=== PATIENT | female | born 1960 | race Caucasian/White ===

== ENCOUNTER 2025-02-09 12:56 | Inpatient (IN) ==
--- NOTE | 2025-02-09 13:15 | Emergency Department Note ---
Impression & Plan Acute hypoxic respiratory failure, Shortness of breath, Anemia ED Provider Note NAME: ELAINA MENON AGE: 64 SEX: F : 1960 ARRIVES VIA: Walk-In INFORMANT: Patient ED PROVIDER(S): Delmer Iraheta DO CHIEF COMPLAINT: Shortness of breath cough and congestion HPI: Patient is a 64-year-old female who presents to the ER with a past medical history of asthma, COPD, pulmonary artery hypertension for cough congestion and shortness of breath. She denies any history of heart failure. She notes symptoms started yesterday and have been gradually getting worse. Denies any chest pain but admits to a productive cough. No belly pain. No nausea, vomiting or diarrhea. No dysuria, urgency or frequency. No other exacerbating or remitting factors. ADDITIONAL HISTORY OBTAINED: Per HPI Chronic Medical/Social Conditions Affecting Care: Per HPI PAST MEDICAL HISTORY:See Below PAST SURGICAL HISTORY:See Below FAMILY HISTORY:See Below SOCIAL HISTORY:See Below HOME MEDICATIONS:See Below ALLERGIES:See Below VITALS:See Below PHYSICAL EXAMINATION: GENERAL: Sitting up in bed, alert, chronically ill-appearing with intermittent cough EYE EXAM: normal conjunctiva. OROPHARYNX: no exudate, no erythema, lips, buccal mucosa, and tongue normal and mucous membranes are moist NECK: supple, no nuchal rigidity, no adenopathy, non-tender LUNGS: Wheezing bilaterally with poor air movement. Normal chest wall mechanics HEART: no murmurs, S1 normal and S2 normal ABDOMEN: abdomen soft, non-tender, normo-active bowel sounds, no masses, no rebound or guarding. UPPER EXTREMITIES: upper extremities are grossly normal. LOWER EXTREMITIES: No pitting edema. Calves are equal bilaterally NEURO EXAM: Normal sensorium, cranial nerves II-XII grossly intact, normal speech, no gross weakness of arms, no gross weakness of legs. MEDICAL DECISION MAKING: Patient is a 64-year-old female who presents ER for shortness of breath and wears oxygen just at night. IV was established and blood work is obtained. She was found to be hypoxic and placed on 3 L nasal cannula. Labs show no significant leukocytosis. Mild anemia 10. BMP with mild acidosis with a CO2 of 20. LFTs bilirubin was unremarkable. Lipase was normal. COVID flu and RSV was negative. EKG was unremarkable. Chest x-ray shows subtle opacities in bilateral bases. Patient was given an hour-long neb treatment as well as steroids IV Rocephin and azithromycin. Updated bedside discussed case with the hospitalist for further evaluation management treatment. Consults/Care Managements Discussions: Per [facility] Triage Nursing notes reviewed. Limited review of prior medical records performed Vital Signs: reviewed and remarkable for hypoxic Differential diagnosis: Differential diagnoses includes but is not limited to pneumonia, bronchitis, COPD/Asthma exacerbation, pneumothorax, pulmonary embolism, congestive heart failure, acute coronary syndrome ER treatment provided: See below Diagnostics interpreted by me include EKG and cardiac monitoring as listed below: -Cardiac Monitoring: An order was placed for continuous cardiac monitoring. The monitor shows a rate of 90 with sinus rhythm. -ECG: Sinus rhythm rate of 67 Normal axis No PVCs QTc 498 T wave inversions V3 through V6 -Laboratory studies:Interpreted by me as stated above in MDM and shown below. Imaging studies: Xrays: As interpreted by me: Portable AP upright 1 view of the chest shows bilateral opacities in the bases CTs show: none Procedures:none Critical Care: I have personally spent 32 minutes of critical care time in the direct management of this patient. This includes bedside care, interpretation of diagnostic studies, and testing, discussion with consultants, patient, and family members, and other required patient management activities. This 32 minutes is in excess of all separately billable procedures. Past Med/Surg History Problem List (Updated 02/09/25 @ 17:18 by Delmer Iraheta DO) Anemia (Acute) Shortness of breath (Acute) Acute hypoxic respiratory failure (Acute) CHF exacerbation COPD with exacerbation Left lower lobe pneumonia Asthmatic bronchitis Anticoagulation management encounter Atrial fibrillation Pulmonary arterial hypertension MARK (dyspnea on exertion) Leg cramps, sleep related Pharyngitis Nasal congestion Asymptomatic age-related postmenopausal state Obstructive sleep apnea Basal cell carcinoma of skin Right hip pain Microscopic colitis Diarrhea Declined smoking cessation Encounter for smoking cessation counseling Tobacco use Hypercholesterolemia Purulent bronchitis Mitral regurgitation Mild by Echo 09/2019 LVEF NL No diastolic dysfn Allergic rhinitis Crohn's disease Mass of left ovary Tobacco dependence Diarrhea Crohn disease Low back pain Coronary artery disease COPD (chronic obstructive pulmonary disease) inhaler daily/prn Medical History Chronic respiratory failure with hypoxia, on home O2 therapy Close exposure to 2019-nCoV Myocardial Infarction (~04/2009) History of COVID-19 Sleep apnea On home oxygen therapy Fatigue Surgical History S/P nasal surgery History of cataract surgery History of cone biopsy of cervix History of bunionectomy of right great toe History of bunionectomy of left great toe History of carpal tunnel surgery of right wrist History of repair of left rotator cuff History of tooth extraction History of tonsillectomy and adenoidectomy History of loop recorder Hx of hernia repair (~12/2020) H/O spinal fusion S/P ACL repair H/O foot surgery H/O elbow surgery History of cardiac cath Family History Mother Diabetes Alzheimer disease Father Heart disease Cancer Other No family history of adverse response to anesthesia No pertinent family history Social History Smoking Status: Current every day smoker Tobacco Type: E-cigarettes / Vaping Age Started Using Tobacco: 17; Age Quit Using Tobacco: 63; packs per day: 1; Cigarettes Per Day: 1 to 1.5 packs per day; Second Hand Exposure: Yes; Do You Dip or Chew Tobacco: No; Hx Alcohol Use: Yes Alcohol type: wine Alcohol Intake Frequency: Monthly or Less Alcohol Intake Frequency Comment: 1-2 glasses every 6 months Hx Substance Use: No Preferred Language: Portuguese Communication Ability: Effective Hearing Ability: Normal Sewer And Cutter Finger Buff Material Required: No Beliefs That Will Affect Care: None marital status: marital status details: Current Living Situation: Spouse and Family Current Living Situation Comment: spouse and grandson current occupational status: employed How many Children do You have: 3 Feels Safe at Home: Yes Childhood Exposure to Second-Hand Smoke: Yes Seatbelt Use: always Sunscreen Use: Yes Assistive Devices: Denture - Upper, Denture - Lower, Glasses and Oxygen - at Night Allergies Allergies Allergy/AdvReac Type Severity Reaction Status Date / Time levofloxacin Allergy Severe Anaphylaxis Verified 01/30/25 13:05 indomethacin [From Indocin] Allergy Mild Rash Verified 01/30/25 13:05 methotrexate Allergy Mild rash/itchy Verified 01/30/25 13:05 vicryl sutures Allergy Intermediate "dont Uncoded 01/30/25 13:05 dissolve" adhesive allergy AdvReac rash Uncoded 01/30/25 13:05 Home Meds Home Medications Medication Instructions Recorded Confirmed aspirin 81 mg tablet,delayed 81 mg PO QAM 02/03/21 02/09/25 release (Adult Low Dose Aspirin) azelastine 137 mcg (0.1 %) nasal 2 spray intranasal BID 02/09/25 02/09/25 spray prednisone 20 mg tablet 20 mg PO DIRECTED 02/09/25 02/09/25 Previous Rx's Medication Instructions Recorded Oxygen Home #1 ea 04/28/20 nebulizer accessories #1 ea 10/07/21 acetaminophen 650 mg 1,300 mg (2 x 650 mg) PO Q12H #120 05/27/22 tablet,extended release (Tylenol tabs Arthritis Pain) albuterol sulfate 90 mcg/actuation 2 puff inhalation Q6H PRN 06/22/23 aerosol inhaler (Ventolin HFA) shortness of breath or wheezing #6.7 grams ipratropium 0.5 mg-albuterol 3 mg 3 ml inhalation Q4H PRN wheezing 11/13/23 (2.5 mg base)/3 mL nebulization #540 mL soln apixaban 5 mg tablet (Eliquis) 5 mg PO BID #180 tabs 10/02/24 furosemide 40 mg tablet 40 mg PO DAILY #90 tabs 01/03/25 atorvastatin 40 mg tablet 40 mg PO .Three times a week #45 01/13/25 tabs fluticasone fur. 200 mcg-umeclid 1 inh inhalation DAILY #60 ea 01/30/25 62.5 mcg-vilant 25 mcg inhalat.powder (Trelegy Ellipta) hydroxyzine HCl 25 mg tablet 50 mg (2 x 25 mg) PO HS PRN 01/30/25 itching #180 tabs metoprolol succinate 100 mg 100 mg PO DAILY #90 tabs 01/30/25 tablet,extended release 24 hr mometasone 50 mcg/actuation nasal 2 spray intranasal HS #17 grams 01/30/25 spray (Allergy Nasal (mometasone)) nitroglycerin 0.4 mg sublingual 0.4 mg sublingual Q5M PRN chest 01/30/25 tablet pain #20 tabs potassium chloride 10 mEq 10 meq PO DAILY #90 tabs 01/30/25 tablet,extended release escitalopram oxalate 10 mg tablet 10 mg PO HS #90 tabs 01/31/25 (Lexapro) Results & Data (ED) Vital Signs Vital Signs - 24 hr 02/09/25 12:57 02/09/25 12:57 02/09/25 13:01 Temperature 36.5 C Temperature Source Temporal Artery Scan Pulse Rate 92 H Pulse Rate [Right Radial] Pulse Rhythm Pulse Rhythm [Right Radial] Pulse Strength [Right Radial] Respiratory Rate 20 Respiratory Effort / Characteristics Spontaneous Respiratory Depth Normal Respiratory Pattern Regular Blood Pressure 130/87 Blood Pressure [Right Arm] Blood Pressure Mean 101 Blood Pressure Mean [Right Arm] Blood Pressure Position [Right Arm] Pulse Oximetry 80 L Oxygen Delivery Method Nasal Cannula Nasal Cannula Nasal Cannula Oxygen Flow Rate 2 2 4 Sepsis Recent Fever Within 48 Hours No Sepsis New/Unexplained Change in Mental Status N/A Sepsis Action Taken by Nursing No Action Required 02/09/25 13:40 02/09/25 13:54 02/09/25 14:00 Temperature Temperature Source Pulse Rate 65 82 Pulse Rate [Right Radial] 63 Pulse Rhythm Regular Pulse Rhythm [Right Radial] Pulse Strength [Right Radial] Respiratory Rate 18 Respiratory Effort / Characteristics Non-Labored Spontaneous Respiratory Depth Respiratory Pattern Blood Pressure Blood Pressure [Right Arm] Blood Pressure Mean Blood Pressure Mean [Right Arm] Blood Pressure Position [Right Arm] Pulse Oximetry 94 94 Oxygen Delivery Method Nasal Cannula Oxygen Flow Rate 3 Sepsis Recent Fever Within 48 Hours Sepsis New/Unexplained Change in Mental Status Sepsis Action Taken by Nursing 02/09/25 14:25 Temperature Temperature Source Pulse Rate Pulse Rate [Right Radial] 77 Pulse Rhythm Pulse Rhythm [Right Radial] Regular Pulse Strength [Right Radial] Normal Respiratory Rate 18 Respiratory Effort / Characteristics Non-Labored Spontaneous Respiratory Depth Normal Respiratory Pattern Regular Blood Pressure Blood Pressure [Right Arm] 109/57 L Blood Pressure Mean Blood Pressure Mean [Right Arm] 74 Blood Pressure Position [Right Arm] Lying Pulse Oximetry 96 Oxygen Delivery Method Room Air Oxygen Flow Rate Sepsis Recent Fever Within 48 Hours Sepsis New/Unexplained Change in Mental Status Sepsis Action Taken by Nursing Laboratory Data 02/09/25 13:19 02/09/25 13:19 Lab Results 02/09/25 Range/Units 13:19 WBC 8.57 (4.8-10.8) K/ul RBC 3.43 L (4.20-5.40) M/uL Hgb 10.6 L (12.0-16.0) g/dl Hct 31.9 L (37.0-47.0) % MCV 93.0 (80.0-100.0) fL MCH 30.9 (25.0-34.0) pg MCHC 33.2 (32.0-36.0) g/dL RDW Std Deviation 50.1 H (36.4-46.3) fL RDW Coeff of Shayna 15.0 H (11.5-14.5) % Plt Count 203 (130-400) K/uL MPV 9.5 (9.4-12.4) fL Immature Gran % (Auto) 1.1 % Neut % (Auto) 93.0 % Lymph % (Auto) 4.4 % Garvin % (Auto) 1.4 % Eos % (Auto) 0.0 % Baso % (Auto) 0.1 % Neut # (Auto) 7.97 H (1.40-6.50) K/uL Lymph # (Auto) 0.38 L (1.20-3.40) K/uL Garvin # (Auto) 0.12 (0.11-0.59) K/uL Eos # (Auto) 0.00 (0.00-0.50) K/uL Baso # (Auto) 0.01 (0.00-0.20) K/uL Immature Gran # (Auto) 0.09 (0.01-0.20) K/uL Polychromasia 1+ Sodium 138 (136-145) mmol/L Potassium 4.1 (3.5-5.1) mmol/L Chloride 108 H (98-107) mmol/L Carbon Dioxide 20 L (21-32) mmol/L Anion Gap 10 (3-11) BUN 11 (6-23) mg/dl Creatinine 0.67 (0.6-1.2) mg/dl Est Cr Clr Drug Dosing 79.6 ml/min eGFR 96.94 BUN/Creatinine Ratio 16.4 (10-20) Glucose 168 H (70-99(Fasting)) mg/dl Calcium 9.2 (8.6-10.3) mg/dl Total Bilirubin 1.6 H (0.2-1.0) mg/dl AST 22 (13-39) U/L ALT 12 (7-52) U/L Alkaline Phosphatase 72 (34-104) U/L Troponin I High Sens 4.7 (0-14) pg/ml Total Protein 7.5 (6.0-8.3) gm/dl Albumin 4.3 (3.4-5.0) gm/dl Globulin 3.2 (2.5-4.0) gm/dl Albumin/Globulin Ratio 1.3 (0.9-2) Lipase 17 (11-82) U/L Administered Medications Furosemide (Furosemide 40 Mg/4 Ml Vial) 40 mg IV [id number] KAYCE Stop: 03/11/25 16:59 Last Admin: 02/09/25 17:11 Dose: 40 mg Documented By: CM Discontinued Medications Albuterol (Albut/Ipratrop 3mg/0.5mg Neb 3 Ml Vial) 12 ml NEB ONE ONE; Protocol Stop: 02/09/25 13:13 Last Admin: 02/09/25 13:40 Dose: 12 ml Documented By: GUNJAN Azithromycin (Azithromycin 250 Mg Tab) 500 mg PO NOW ONE Stop: 02/09/25 13:43 Last Admin: 02/09/25 14:05 Dose: 500 mg Documented By: yessi Ceftriaxone Sodium (Rocephin) 2,000 mg in 50 mls @ 100 mls/hr IV NOW STA Stop: 02/09/25 14:11 Last Infusion: 02/09/25 14:35 Dose: Infused Documented By: Admin: 02/09/25 14:05 Dose: 100 mls/hr Documented By: yessi Methylprednisolone (Methylprednisolone 125 Mg/2 Ml Vial) 40 mg IV NOW STA Stop: 02/09/25 13:13 Last Admin: 02/09/25 13:36 Dose: 40 mg Documented By: yessi Imaging Data Radiologist's Impression: Chest X-Ray 02/09/25 13:12 SINGLE VIEW CHEST CLINICAL HISTORY: Chest pain FINDINGS: 2 AP, portable, upright chest radiographs are obtained. No prior studies are available for comparison at the time of dictation. An electronic device projects over the left lower chest. The heart is enlarged and noting atherosclerotic calcification of the thoracic aorta. There is pulmonary vascular congestion. Enlargement of the central pulmonary arteries suggests pulmonary artery hypertension. Small pleural effusions are suspected and there is left basilar consolidation. No pneumothorax is seen. The skeletal structures are osteopenic. The bony thorax is grossly intact. IMPRESSION: 1. Cardiomegaly with evidence of congestive failure. Radiographic follow-up to resolution is recommended. 2. Small pleural effusions with left basilar consolidation. This could represent atelectasis. Correlate clinically for evidence of a superimposed pneumonia/aspiration pneumonitis. Again, this should be followed radiographically. ACT 112: Negative or not required by law. Electronically signed by: Benito Choe M.D. 02/09/2025 1:52 PM Discharge Plan Visit Data Chief Complaint: Shortness of Breath/Dyspnea Stated Complaint: SHORT OF BREATH ED Provider: Delmer Iraheta Discharge Problem: Acute hypoxic respiratory failure, Shortness of breath, Anemia Patient Disposition: Admitted As Inpatient Condition: Serious Discharge Instructions Interventions: ED Discharge Assessment Last Done: 02/09/25 16:40 Discharge Problem: Anemia Qualifiers: Anemia type: unspecified type Qualified Code(s): D64.9 - Anemia, unspecified
[2025-02-09] MEDS: ALBUT/IPRATROP 3MG/0.5MG NEB 3 ML VIAL NEB ONE (13:40)
--- NOTE | 2025-02-09 13:53 | XRay Report ---
SINGLE VIEW CHEST CLINICAL HISTORY: Chest pain FINDINGS: 2 AP, portable, upright chest radiographs are obtained. No prior studies are available for comparison at the time of dictation. An electronic device projects over the left lower chest. The hea rt is enlarged and noting atherosclerotic calcification of the thoracic aorta. There is pulmonary vas cular congestion. Enlargement of the central pulmonary arteries suggests pulmonary artery hypertensio n. Small pleural effusions are suspected and there is left basilar consolidation. No pneumothorax is seen. The skeletal structures are osteopenic. The bony thorax is grossly intact. IMPRESSION: 1. Cardiomegaly with evidence of congestive failure. Radiographic follow-up to resolution is recommen ded. 2. Small pleural effusions with left basilar consolidation. This could represent atelectasis. Correla te clinically for evidence of a superimposed pneumonia/aspiration pneumonitis. Again, this should be followed radiographically. ACT 112: Negative or not required by law. Electronically signed by: Benito Choe M.D. 02/09/2025 1:52 PM
[2025-02-09 13:59] LABS: Alanine Aminotransferase 12.0 U/L (7-52); Albumin Globulin Ratio 1.3 (0.9-2); Albumin Level 4.3 gm/dl (3.4-5.0); Alkaline Phosphatase 72.0 U/L (34-104); Anion Gap 10.0 (3-11); Bilirubin,Total 1.6 mg/dl (0.2-1.0); Blood Urea Nitrogen 11.0 mg/dl (6-23); Calcium 9.2 mg/dl (8.6-10.3); Carbon Dioxide 20.0 mmol/L (21-32); Chloride 108.0 mmol/L (98-107); Creatinine Clr Calc Pharmacy 79.6 ml/min; Globulin 3.2 gm/dl (2.5-4.0); Glucose 168.0 mg/dl (70-99(Fasting)); Lipase 17.0 U/L (11-82); Potassium 4.1 mmol/L (3.5-5.1); Sodium 138.0 mmol/L (136-145); Total Protein 7.5 gm/dl (6.0-8.3)
[2025-02-09] MEDS: AZITHROMYCIN 250 MG TAB PO ONE (14:05)
[2025-02-09] MEDS: cefTRIAXone SODIUM 2,000 MG/50 ML BAG IV STA (14:05)
[2025-02-09 14:13] LABS: Hematocrit (blood only) 31.9 % (37.0-47.0); Hemoglobin 10.6 g/dl (12.0-16.0); Mean Corpuscular Hemoglobin 30.9 pg (25.0-34.0); Mean Corpuscular Volume 93.0 fL (80.0-100.0); Platelet Count 203 K/uL (130-400); RDW Standard Deviation 50.1 fL (36.4-46.3); Red Blood Count 3.43 M/uL (4.20-5.40); White Blood Count 8.57 K/ul (4.8-10.8)
[2025-02-09 14:14] LABS: Immature Granulocytes # (auto) 0.09 K/uL (0.01-0.20); Immature Granulocytes % (auto) 1.1 %; Polychromasia 1+
[2025-02-09] MEDS ORDERED: ALBUT/IPRATROP 3MG/0.5MG NEB 3 ML VIAL INH PRN (14:52)
[2025-02-09] MEDS ORDERED: ONDANSETRON INJ 2 MG/ML 2 ML VIAL IV PRN (14:59)
--- NOTE | 2025-02-09 16:11 | History & Physical Report ---
Date of Service February 09, 2025 Assessment & Plan (1) COPD with exacerbation: Plan: -duonebs -solu-medrol 40mg IV Q6hrs -supplimental 02 (2) Left lower lobe pneumonia: Plan: -rocephin/zithromax (3) CHF exacerbation: Plan: -lasix 40mg IV BID -echo -cardiology consulted (4) Atrial fibrillation: Plan: -eliquis (5) Coronary artery disease: Plan: -asa -atorvastatin -metoprolol History of Present Illness Chief Complaint: SOB,fever, cough Primary Care Provider: Edy Hoffmann MD Pt is a 64 y/o female with pmh of COPD using home 02 at night, CAD s/p stent, CHF, afib on eliquis, who presents with 1 day history of progressive SOB, cough, fever, and wheezing. In the ER her CXR showed CHF, with possible left lower lobe opacity. She was noted to have audible wheezing. Pt was given nebs along with solu-medrol IV and started on abx for treatment of PNA. She is also receiving lasix IV and will have further evaluation of underlying CHF exacerbation. Allergies Allergy/AdvReac Type Severity Reaction Status Date / Time levofloxacin Allergy Severe Anaphylaxis Verified 01/30/25 13:05 indomethacin [From Indocin] Allergy Mild Rash Verified 01/30/25 13:05 methotrexate Allergy Mild rash/itchy Verified 01/30/25 13:05 vicryl sutures Allergy Intermediate "dont Uncoded 01/30/25 13:05 dissolve" adhesive allergy AdvReac rash Uncoded 01/30/25 13:05 Home Medications Medication Instructions Recorded Confirmed Type Oxygen Home #1 ea 04/28/20 01/30/25 Rx aspirin 81 mg tablet,delayed 81 mg PO QAM 02/03/21 02/09/25 History release (Adult Low Dose Aspirin) nebulizer accessories #1 ea 10/07/21 01/30/25 Rx acetaminophen 650 mg 1,300 mg (2 x 650 mg) PO Q12H #120 05/27/22 02/09/25 Rx tablet,extended release (Tylenol tabs Arthritis Pain) albuterol sulfate 90 mcg/actuation 2 puff inhalation Q6H PRN 06/22/23 02/09/25 Rx aerosol inhaler (Ventolin HFA) shortness of breath or wheezing #6.7 grams ipratropium 0.5 mg-albuterol 3 mg 3 ml inhalation Q4H PRN wheezing 11/13/23 02/09/25 Rx (2.5 mg base)/3 mL nebulization #540 mL soln apixaban 5 mg tablet (Eliquis) 5 mg PO BID #180 tabs 10/02/24 02/09/25 Rx furosemide 40 mg tablet 40 mg PO DAILY #90 tabs 01/03/25 02/09/25 Rx atorvastatin 40 mg tablet 40 mg PO .Three times a week #45 01/13/25 02/09/25 Rx tabs fluticasone fur. 200 mcg-umeclid 1 inh inhalation DAILY #60 ea 01/30/25 02/09/25 Rx 62.5 mcg-vilant 25 mcg inhalat.powder (Trelegy Ellipta) hydroxyzine HCl 25 mg tablet 50 mg (2 x 25 mg) PO HS PRN 01/30/25 02/09/25 Rx itching #180 tabs metoprolol succinate 100 mg 100 mg PO DAILY #90 tabs 01/30/25 02/09/25 Rx tablet,extended release 24 hr mometasone 50 mcg/actuation nasal 2 spray intranasal HS #17 grams 01/30/25 02/09/25 Rx spray (Allergy Nasal (mometasone)) nitroglycerin 0.4 mg sublingual 0.4 mg sublingual Q5M PRN chest 01/30/25 02/09/25 Rx tablet pain #20 tabs potassium chloride 10 mEq 10 meq PO DAILY #90 tabs 01/30/25 02/09/25 Rx tablet,extended release escitalopram oxalate 10 mg tablet 10 mg PO HS #90 tabs 01/31/25 02/09/25 Rx (Lexapro) azelastine 137 mcg (0.1 %) nasal 2 spray intranasal BID 02/09/25 02/09/25 History spray prednisone 20 mg tablet 20 mg PO DIRECTED 02/09/25 02/09/25 History Past Med/Surg History Problem List (Updated 02/09/25 @ 16:16 by Sotero Quijano MD) CHF exacerbation COPD with exacerbation Left lower lobe pneumonia Asthmatic bronchitis Anticoagulation management encounter Atrial fibrillation Pulmonary arterial hypertension MARK (dyspnea on exertion) Leg cramps, sleep related Pharyngitis Nasal congestion Asymptomatic age-related postmenopausal state Obstructive sleep apnea Basal cell carcinoma of skin Right hip pain Microscopic colitis Diarrhea Declined smoking cessation Encounter for smoking cessation counseling Tobacco use Hypercholesterolemia Purulent bronchitis Mitral regurgitation Mild by Echo 09/2019 LVEF NL No diastolic dysfn Allergic rhinitis Crohn's disease Mass of left ovary Tobacco dependence Diarrhea Crohn disease Low back pain Coronary artery disease COPD (chronic obstructive pulmonary disease) inhaler daily/prn Medical History Chronic respiratory failure with hypoxia, on home O2 therapy Close exposure to 2019-nCoV Myocardial Infarction (~04/2009) History of COVID-19 Sleep apnea On home oxygen therapy Fatigue Surgical History S/P nasal surgery History of cataract surgery History of cone biopsy of cervix History of bunionectomy of right great toe History of bunionectomy of left great toe History of carpal tunnel surgery of right wrist History of repair of left rotator cuff History of tooth extraction History of tonsillectomy and adenoidectomy History of loop recorder Hx of hernia repair (~12/2020) H/O spinal fusion S/P ACL repair H/O foot surgery H/O elbow surgery History of cardiac cath Family History Mother Diabetes Alzheimer disease Father Heart disease Cancer Other No family history of adverse response to anesthesia No pertinent family history Social History Smoking Status: Current every day smoker Tobacco Type: E-cigarettes / Vaping Age Started Using Tobacco: 17; Age Quit Using Tobacco: 63; packs per day: 1; Cigarettes Per Day: 1 to 1.5 packs per day; Second Hand Exposure: Yes; Do You Dip or Chew Tobacco: No; Hx Alcohol Use: Yes Alcohol type: wine Alcohol Intake Frequency: Monthly or Less Alcohol Intake Frequency Comment: 1-2 glasses every 6 months Hx Substance Use: No Preferred Language: Kiswahili Communication Ability: Effective Hearing Ability: Normal Nitroglycerin 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 HENT: Negative for neck pain/stiffness, headache, congestion, sore throat, swelling. EYES: Negative for discharge/pain or vision changes. RESP:+ for cough and shortness of breath. CV: Negative chest pain, +SOB, palpitations. ABD: Negative pain, nausea, vomiting. : Negative increase frequency, dysuria, blood in urine or stool. MUSC: Negative for muscle aches, edema. SKIN: Negative rash, lesions/sores. NEURO: Negative headache, dizziness, weakness. Physical Exam Physical Exam: GENERAL APPEARANCE NAD, activity normal for age, well developed/ well nourished, no cyanosis, pallor, or diaphoresis. EYES lids/conjunctiva normal. EARS/NOSE/THROAT Mucous membranes moist, nares normal, lips/teeth normal uvula midline without oral pharyngeal erythema, exudate or swelling TMs normal bilaterally. No lymphangitis/lymphedema. HEAD/NECK normocephalic atraumatic, no facial trauma, neck is supple. RESPIRATORY b/l wheezes, rales CARDIAC Regular rate and rhythm, no edema. ABDOMINAL Soft, ND/NT. No evidence of fluid wave. No pulsatile masses on exam, rebound tenderness, [place] sign or pain over Mcburney's point. MUSCLES/EXTREMITIES No abnormal range of motion, no swelling. SKIN Warm, pink and dry. No rashes, dermatoses, petechiae or lesions. NEUROLOGICAL Speech is clear and appropriate. Normal level of consciousness. Gait and coordination are normal. 5/5 strength in all extremities. PSYCH Normal mood and affect. Judgement/competence is appropriate Results & Data Results & Data Vital Signs (Past 12 Hours) Vital Signs Temp Pulse Pulse Resp BP BP Pulse Ox 02/09/25 14:25 77 18 109/57 L 96 02/09/25 14:00 82 94 02/09/25 13:54 65 02/09/25 13:40 63 18 94 02/09/25 13:01 36.5 C 92 H 20 130/87 80 L 02/09/25 12:57 02/09/25 12:57 O2 Del Method O2 Flow Rate 02/09/25 14:25 Room Air 02/09/25 14:00 02/09/25 13:54 02/09/25 13:40 Nasal Cannula 3 02/09/25 13:01 Nasal Cannula 4 02/09/25 12:57 Nasal Cannula 2 02/09/25 12:57 Nasal Cannula 2 PG Care Time/CCT Total # of Minutes Spent Total Time Spent with Patient: Total time spent is greater than 50% in coordination of care (as documented) at patient's floor/unit and/or counseling patient: Coding Level of Care Code 59461 INT INP/OBS CARE MIN Diagnoses COPD with exacerbation J44.1 Pneumonia of left lower lobe due to infectious organism J18.9 Pneumonia type: due to unspecified organism CHF exacerbation I50.9 Paroxysmal atrial fibrillation I48.0 Atrial fibrillation type: paroxysmal Coronary artery disease involving [place] coronary artery of [place] heart without angina pectoris I25.10 Coronary Disease-Associated Artery/Lesion type: [place] artery [place] vs. transplanted heart: [place] heart Associated angina: without angina (2) Left lower lobe pneumonia Pneumonia type: due to unspecified organism Qualified Code(s): J18.9 - Pneumonia, unspecified organism (4) Atrial fibrillation Atrial fibrillation type: paroxysmal Qualified Code(s): I48.0 - Paroxysmal atrial fibrillation (5) Coronary artery disease Coronary Disease-Associated Artery/Lesion type: [place] artery [place] vs. transplanted heart: [place] heart Associated angina: without angina Qualified Code(s): I25.10 - Atherosclerotic heart disease of [place] coronary artery without angina pectoris
[2025-02-09 16:34] LABS: Influenza A virus by PCR Negative (Neg); Influenza B virus by PCR Negative (Neg); SARS CoV2 RNA(COVID-19) Ceph NEGATIVE (Negative)
[2025-02-09] MEDS: FUROSEMIDE 40 MG/4 ML VIAL IV SCH (17:11)
--- NOTE | 2025-02-09 19:20 | Electrocardiogram Report ---
Test Reason : Blood Pressure : */* mmHG Vent. Rate : 67 BPM Atrial Rate : 67 BPM P-R Int : 140 ms QRS Dur : 84 ms QT Int : 472 ms P-R-T Axes : 49 36 32 degrees QTcB Int : 498 ms Sinus rhythm with Premature atrial complexes Nonspecific ST and T wave abnormality Abnormal ECG No previous ECGs available Confirmed by Julio Cesar Morel ([id number]) on 02/09/2025 7:19:49 PM Referred By: Confirmed By: Julio Cesar Morel
[2025-02-09] MEDS ORDERED: FLUTICASONE PROPIONATE NA SPR 16 GM BTL PRN (20:01)
[2025-02-09] MEDS: APIXABAN 5 MG TABLET PO SCH (20:09)
[2025-02-09] MEDS: ESCITALOPRAM OXALATE 10 MG TAB PO SCH (20:09)
[2025-02-09] MEDS: ACETAMINOPHEN 325 MG TAB PO PRN (20:09)
[2025-02-09] MEDS: METOPROLOL SUCC 50MG EXT REL TAB PO SCH (21:03)
[2025-02-10 06:34] LABS: Hematocrit (blood only) 25.6 % (37.0-47.0); Hemoglobin 9.3 g/dl (12.0-16.0); Mean Corpuscular Hemoglobin 34.6 pg (25.0-34.0); Mean Corpuscular Volume 95.2 fL (80.0-100.0); Platelet Count 198 K/uL (130-400); RDW Standard Deviation 47.6 fL (36.4-46.3); Red Blood Count 2.69 M/uL (4.20-5.40); White Blood Count 6.62 K/ul (4.8-10.8)
[2025-02-10 07:14] LABS: Anion Gap 9.0 (3-11); Blood Urea Nitrogen 13.0 mg/dl (6-23); Calcium 8.9 mg/dl (8.6-10.3); Carbon Dioxide 21.0 mmol/L (21-32); Chloride 107.0 mmol/L (98-107); Creatinine Clr Calc Pharmacy 102.8 ml/min; Glucose 146.0 mg/dl (70-99(Fasting)); Potassium 4.2 mmol/L (3.5-5.1); Sodium 137.0 mmol/L (136-145)
--- NOTE | 2025-02-10 08:12 | Hospitalist Progress Note ---
Date of Service February 10, 2025 Assessment & Plan (1) COPD with exacerbation: Plan: -duonebs - Transition to prednisone 40 mg a day -supplimental 02 may require 2 step prior to discharge (2) Left lower lobe pneumonia: Plan: -rocephin/zithromax (3) CHF exacerbation: Plan: -lasix daily -echo pending -cardiology consulted (4) Atrial fibrillation: Plan: -eliquis (5) Coronary artery disease: Plan: -asa -atorvastatin -metoprolol Plan 64 y/o female with pmh of chronic respiratory failure with hypoxia, COPD using home 02 at night, CAD s/p stent, CHF, afib on eliquis, who presents with 1 day history of progressive SOB, cough, fever, and wheezing. In the ER her CXR showed exacerbation of heart failure preserved ejection fraction with possible left lower lobe opacity consistent with pneumonia. She was noted to have audible wheezing. Pt was given nebs along with solu-medrol IV and started on abx for treatment of PNA despite gram-negative. She is also receiving lasix IV to treat her acute heart failure exacerbation #Acute on chronic respiratory failure with hypoxia. Multifactorial. Concern for COPD with wheezing, concern for pneumonia possible gram-negative, concern for exacerbation of heart failure preserved ejection fraction. For the possible COPD the patient will be transition from Solu-Medrol to oral prednisone and medications including fluticasone and albuterol umeclidinium and vilanterol, will require 2 step prior to discharge. For exacerbation of heart failure preserved ejection fraction patient cardiology feels patient can return to her daily Lasix dosing. For the possibility of pneumonia patient is on community-acquired pneumonia antibiotics with short consideration to transition to a more broader gram- negative coverage for Pseudomonas if the patient does not improve #Coronary artery disease atrial fibrillation patient remains on apixaban, aspirin, atorvastatin and metoprolol therapy #For depression he remains on escitalopram Admission and Anticipated Discharge Date Admission Date: February 09, 2025 Subjective Patient feels much better. She is accompanied by her . She still has some coarse respirations and a nonproductive cough on evaluation. I did speak personally to the assembler fishing floats who feels she is euvolemic with regard to her heart failure standpoint and wishes to return to her daily Lasix dosing. Physical Exam Physical Exam: Cardiac exam is regular lungs have coarse breath sounds bilaterally some rales at the right base rhonchi are heard but no overt wheezes Extremities are with trace edema Results & Data Results & Data Vital Signs (Past 12 Hours) Vital Signs Temp Pulse Pulse Resp BP Pulse Ox O2 Del Method 02/10/25 07:56 Nasal Cannula 02/10/25 07:47 99.0 F 73 18 102/67 91 Nasal Cannula 02/10/25 07:00 57 L 02/10/25 03:08 99.0 F 65 18 106/50 L 91 Nasal Cannula 02/10/25 02:10 97.9 F 02/09/25 23:35 99.9 F H 74 21 113/67 93 Nasal Cannula 02/09/25 21:40 75 02/09/25 21:25 Nasal Cannula 02/09/25 21:02 99.0 F 116/65 O2 Flow Rate 02/10/25 07:56 3 02/10/25 07:47 3 02/10/25 07:00 02/10/25 03:08 4 02/10/25 02:10 02/09/25 23:35 02/09/25 21:40 02/09/25 21:25 4 02/09/25 21:02 Laboratory Results Reviewed CBC mildly anemic but stable Reviewed chemistry no renal distress from diuresis Discussed case with assembler fishing floats Updated at bedside PG Care Time/CCT Total # of Minutes Spent Total Time Spent with Patient: Total time spent is greater than 50% in coordination of care (as documented) at patient's floor/unit and/or counseling patient: Coding Level of Care Code 14332 SUB INP/OBS CARE 3/50MIN Diagnoses COPD with exacerbation J44.1 Pneumonia of left lower lobe due to infectious organism J18.9 Pneumonia type: due to unspecified organism CHF exacerbation I50.9 Paroxysmal atrial fibrillation I48.0 Atrial fibrillation type: paroxysmal Coronary artery disease involving [place] coronary artery of [place] heart without angina pectoris I25.10 Associated angina: without angina Coronary Disease-Associated Artery/Lesion type: [place] artery [place] vs. transplanted heart: [place] heart (2) Left lower lobe pneumonia Pneumonia type: due to unspecified organism Qualified Code(s): J18.9 - Pneumonia, unspecified organism (4) Atrial fibrillation Atrial fibrillation type: paroxysmal Qualified Code(s): I48.0 - Paroxysmal atrial fibrillation (5) Coronary artery disease Associated angina: without angina Coronary Disease-Associated Artery/Lesion type: [place] artery [place] vs. transplanted heart: [place] heart Qualified Code(s): I25.10 - Atherosclerotic heart disease of [place] coronary artery without angina pectoris
[2025-02-10] MEDS ORDERED: FUROSEMIDE 40 MG TAB PO SCH (09:00)
[2025-02-10] MEDS ORDERED: METOPROLOL SUCC 50MG EXT REL TAB PO SCH (09:00)
[2025-02-10] MEDS ORDERED: NON-FORMULARY MEDICATION (Fluticasone-Umeclidin-Vilanter [Trelegy Ellipta] 200-62.5-25 mcg INH SCH (09:00)
--- NOTE | 2025-02-10 09:01 | XCELERA ---
[id number] \\[facility]\[email or web address]_[email or web address]\[id number]
[2025-02-10] MEDS: UMECLIDINIUM/VILANTEROL 62.5/25MCG 7 PUFFS/INHALER INH SCH (09:07)
[2025-02-10] MEDS: FLUTICASONE FUROATE 200MCG 14 PUFFS/INHALER INH SCH (09:08)
[2025-02-10] MEDS: AZITHROMYCIN 250 MG TAB PO SCH (09:10)
[2025-02-10] MEDS: ATORVASTATIN 40 MG TAB PO SCH (09:11)
[2025-02-10] MEDS: ASPIRIN 81 MG ECTAB PO SCH (09:12)
[2025-02-10] MEDS: cefTRIAXone SODIUM 1,000 MG/50 ML BAG IV SCH (14:18)
[2025-02-10] MEDS: predniSONE 20 MG TAB PO ONE (14:57)
--- NOTE | 2025-02-10 15:18 | Cardiology Consultation ---
Date of Consultation February 10, 2025 Assessment & Plan (1) Heart failure with preserved ejection fraction: (2) Paroxysmal atrial fibrillation: (3) Coronary artery disease: (4) S/P coronary artery stent placement: (5) Shortness of breath: Plan ASSESSMENT/PLAN: 1. Possible heart failure with preserved EF: She does not appear hypervolemic and has received intravenous diuretic by hospitalist service. Her biggest improvement that she has noted was after coughing up a large mucous plug. Recommend low-sodium diet, less than 2000 mg daily. Can replace intravenous Lasix with home dose of 40 mg furosemide p.o. daily tomorrow. Heart failure program, especially for transition from hospital to home. If no contraindication, could consider SGLT2 inhibitor in the outpatient setting. 2. Shortness of breath: Likely multifactorial as she has COPD and uses supplemental oxygen at home. She does not appear hypervolemic currently however her symptoms have significantly improved after diuresis and expectorating large mucous plug. Ongoing COPD or possibility of pneumonia as per primary hospitalist service. 3. CAD s/p RCA PCI: No angina. Continue aspirin 81 mg daily. Continue statin therapy as tolerated. On beta-gila chronically. 4. Paroxysmal atrial fibrillation: Sinus rhythm while here. On anticoagulation therapy for stroke risk reduction. Monitor CBC. 5. Anemia: Her hemoglobin was normal in July at 13.3 and down to 9.3 today. Anemia workup recommended and will defer to primary hospitalist service. 6. Disposition: Cardiology will sign off at this time. Follow-up with her primary tank inspector, Dr. Soto, on discharge. Can utilize heart failure program for close hospital follow-up. Patient care discussed with Dr. Becker of the primary hospitalist service. Thank you for allowing me to participate in the care of your patient. Please call for any other questions or concerns. Sincerely, Mingo Elena M.D. History of Present Illness Reason for Consultation: "CHF" Requesting Physician: Sotero Quijano MD Attending Physician: Germán Becker MD History of Present Illness Ms. Ocampo is a very pleasant 64-year-old female with a history significant for CAD s/p RCA PCI (04/29/2009), paroxysmal atrial fibrillation, dyslipidemia, COPD, chronic respiratory failure with hypoxia on supplemental oxygen at home, sleep apnea on CPAP nightly, Crohn's, loop recorder, and PVCs. Her primary tank inspector is Dr. Soto. She was seen in consultation this morning. She was admitted on 02/09/2025 who presented due to worsened shortness of breath, worsening cough, and low-grade fever. She uses supplemental oxygen at home, 3.5 to 4 L with CPAP at night and 2 to 3 L throughout the day on an as needed basis. She has noted increased need for supplemental oxygen as needed. Symptoms have worsened over the past 2 weeks with increased dyspnea on exertion. She noted that her oxygen saturation at home was in the 80%'s on room air. She has chronic orthopnea. She has noted a 10 pound weight gain over the past 4 months but nothing acutely. She denies edema. She does not remain dedicated to a low-sodium diet. She has noted chest discomfort described as uncomfortable feeling that is different than her prior angina. The chest discomfort occurs when she is noticing more shortness of breath. She has occasional elevated heart rate on her smart watch while sleeping in the 120s. She noted that she coughed up a large dark/brown sputum this morning and described it as a mucous plug. Her shortness of breath improved afterward. She uses atorvastatin 3 days/week as daily caused myalgias. She has a loop rec order which has reached end-of-life but she chose not to have it explanted. She was diagnosed with atrial fibrillation in 2023 with RSV infection. She recalls having cardiac catheterization repeated, most recently she believes in 2013 which demonstrated nonobstructive CAD per records. In 2009, she had a myocardial infarction with chest discomfort described as an elephant sitting on her chest. She she underwent PCI of her RCA. Overall, she states that she feels 90% better than she did on presentation. She admits that her urine output has not been fully collected. She has had the following studies/procedures: 1. Cardiac cath 04/29/2009 [facility]: Proximal RCA PCI with 3 x 24 mm [place]. 2. Cardiac cath 2013: Nonobstructive CAD per records. 3. Echo 02/10/2025: Normal LV size, wall motion, systolic function. EF 60-65%. Moderate LVH. Normal RV size and systolic function. Moderate biatrial dilation. Mild MR. RVSP 45. Similar findings compared to 02/23/2023 study. Review of systems: As above. Family history: 2 brothers with CAD. Social history: She quit smoking in October 2023 but now vapes. She had smoked up to 1.5 pack/day and started at the age of 17. Occasional alcohol. No drugs. Lives at home with her and grandson. She has 3 children. 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 She was unaccompanied. Allergies Allergy/AdvReac Type Severity Reaction Status Date / Time levofloxacin Allergy Severe Anaphylaxis Verified 01/30/25 13:05 suture Allergy Intermediate VICRYL Verified 02/09/25 20:06 SUTURES DON'T DISSOLVE indomethacin [From Indocin] Allergy Mild Rash Verified 01/30/25 13:05 methotrexate Allergy Mild rash/itchy Verified 01/30/25 13:05 adhesive AdvReac Rash Verified 02/09/25 20:06 Home Medications Medication Instructions Recorded Confirmed Type Oxygen Home #1 ea 04/28/20 01/30/25 Rx aspirin 81 mg tablet,delayed 81 mg PO QAM 02/03/21 02/09/25 History release (Adult Low Dose Aspirin) nebulizer accessories #1 ea 10/07/21 01/30/25 Rx acetaminophen 650 mg 1,300 mg (2 x 650 mg) PO Q12H #120 05/27/22 02/09/25 Rx tablet,extended release (Tylenol tabs Arthritis Pain) albuterol sulfate 90 mcg/actuation 2 puff inhalation Q6H PRN 06/22/23 02/09/25 Rx aerosol inhaler (Ventolin HFA) shortness of breath or wheezing #6.7 grams ipratropium 0.5 mg-albuterol 3 mg 3 ml inhalation Q4H PRN wheezing 11/13/23 02/09/25 Rx (2.5 mg base)/3 mL nebulization #540 mL soln apixaban 5 mg tablet (Eliquis) 5 mg PO BID #180 tabs 10/02/24 02/09/25 Rx furosemide 40 mg tablet 40 mg PO DAILY #90 tabs 01/03/25 02/09/25 Rx atorvastatin 40 mg tablet 40 mg PO .Three times a week #45 01/13/25 02/09/25 Rx tabs fluticasone fur. 200 mcg-umeclid 1 inh inhalation DAILY #60 ea 01/30/25 02/09/25 Rx 62.5 mcg-vilant 25 mcg inhalat.powder (Trelegy Ellipta) hydroxyzine HCl 25 mg tablet 50 mg (2 x 25 mg) PO HS PRN 01/30/25 02/09/25 Rx itching #180 tabs metoprolol succinate 100 mg 100 mg PO DAILY #90 tabs 01/30/25 02/09/25 Rx tablet,extended release 24 hr mometasone 50 mcg/actuation nasal 2 spray intranasal HS #17 grams 01/30/25 02/09/25 Rx spray (Allergy Nasal (mometasone)) nitroglycerin 0.4 mg sublingual 0.4 mg sublingual Q5M PRN chest 01/30/25 02/09/25 Rx tablet pain #20 tabs potassium chloride 10 mEq 10 meq PO DAILY #90 tabs 01/30/25 02/09/25 Rx tablet,extended release escitalopram oxalate 10 mg tablet 10 mg PO HS #90 tabs 01/31/25 02/09/25 Rx (Lexapro) azelastine 137 mcg (0.1 %) nasal 2 spray intranasal BID 02/09/25 02/09/25 History spray prednisone 20 mg tablet 20 mg PO DIRECTED 02/09/25 02/09/25 History Problem List (Updated 02/10/25 @ 21:26 by Heriberto Elena MD) S/P coronary artery stent placement Paroxysmal atrial fibrillation Heart failure with preserved ejection fraction Anemia (Acute) Shortness of breath (Acute) Acute hypoxic respiratory failure (Acute) CHF exacerbation COPD with exacerbation Left lower lobe pneumonia Asthmatic bronchitis Anticoagulation management encounter Atrial fibrillation Pulmonary arterial hypertension MARK (dyspnea on exertion) Leg cramps, sleep related Pharyngitis Nasal congestion Asymptomatic age-related postmenopausal state Obstructive sleep apnea Basal cell carcinoma of skin Right hip pain Microscopic colitis Diarrhea Declined smoking cessation Encounter for smoking cessation counseling Tobacco use Hypercholesterolemia Purulent bronchitis Mitral regurgitation Mild by Echo 09/2019 LVEF NL No diastolic dysfn Allergic rhinitis Crohn's disease Mass of left ovary Tobacco dependence Diarrhea Crohn disease Low back pain Coronary artery disease (Chronic) COPD (chronic obstructive pulmonary disease) inhaler daily/prn Patient History Medical History (Updated 02/10/25 @ 21:26 by Heriberto Elena MD) Chronic respiratory failure with hypoxia, on home O2 therapy Close exposure to 2018- Myocardial Infarction (~04/2009) had heart cath with 1 stent placed---follows with Dr. Soto History of COVID-19 diagnosed 03/2020--chest cold, loss of taste/smell--no issues now Sleep apnea 3 1/2L N/C at hs On home oxygen therapy 3 1/2L N/C at hs Fatigue Surgical History (Updated 02/10/25 @ 21:26 by Heriberto Elena MD) S/P nasal surgery Moh's surgery with plastic surgery of the nose August 2021 History of cataract surgery both eyes in October 2021 and Nov 2021 History of cone biopsy of cervix History of bunionectomy of right great toe History of bunionectomy of left great toe History of carpal tunnel surgery of right wrist History of repair of left rotator cuff History of tooth extraction all teeth removed History of tonsillectomy and adenoidectomy History of loop recorder Hx of hernia repair (~12/2020) @ [facility] [place] H/O spinal fusion lumbar S/P ACL repair left H/O foot surgery left H/O elbow surgery cubital repair right History of cardiac cath roughly 4 heart caths--last 2015--04/2009 with 1 stent placed @ [facility] Family History Mother Diabetes Alzheimer disease Father Heart disease Cancer Other No family history of adverse response to anesthesia No pertinent family history Social History Smoking Status: Current every day smoker Tobacco Type: E-cigarettes / Vaping Age Started Using Tobacco: 17; Age Quit Using Tobacco: 63; packs per day: 1; Second Hand Exposure: Yes; Do You Dip or Chew Tobacco: No; Hx Alcohol Use: Yes Alcohol type: wine Alcohol Intake Frequency: Monthly or Less Alcohol Intake Frequency Comment: 1-2 glasses every 6 months Hx Substance Use: No Preferred Language: Frisian Communication Ability: Effective Hearing Ability: Normal Mannequin Mold Maker Required: No Beliefs That Will Affect Care: None marital status: marital status details: Current Living Situation: Spouse and Family Current Living Situation Comment: spouse and grandson current occupational status: employed How many Children do You have: 3 Feels Safe at Home: Yes Childhood Exposure to Second-Hand Smoke: Yes Seatbelt Use: always Sunscreen Use: Yes Assistive Devices: Denture - Upper, Denture - Lower, Glasses and Oxygen - at Night Physical Exam Physical Exam: Gen.: No acute distress. Alert and oriented. HEENT: Anicteric sclera. Neck: No JVD. No hepatojugular reflux. No bruits. Normal carotid upstrokes bilaterally. Cardiac: Regular. Normal rate. Normal S1-S2. No murmurs, rubs, or gallops. Pulmonary: Decreased breath sounds bilaterally, but otherwise clear to auscultation bilaterally without wheezes, rales, or rhonchi. Abdomen: Soft, nontender, nondistended, with normoactive bowel sounds. No bruits noted. Extremities: 2+ radial pulses bilaterally. 2+ posterior tibialis pulses bilaterally. No edema or cyanosis. Results & Data Vital Signs (Past 12 Hours) Vital Signs Temp Pulse Pulse Resp BP Pulse Ox O2 Del Method 02/10/25 13:50 69 02/10/25 11:43 37.0 C 67 18 110/65 90 Nasal Cannula 02/10/25 07:56 Nasal Cannula 02/10/25 07:47 37.2 C 73 18 102/67 91 Nasal Cannula 02/10/25 07:00 57 L O2 Flow Rate 02/10/25 13:50 02/10/25 11:43 3 02/10/25 07:56 3 02/10/25 07:47 3 02/10/25 07:00 Intake & Output 02/08/25 02/09/25 02/10/25 02/11/25 06:59 06:59 06:59 06:59 Intake Total 250 / 250 50 / 50 Output Total 1525 / 1525 150 / 150 Balance -1275 / -1275 -100 / -100 Weight 159 lb 6.4 oz Laboratory Results Laboratory Results - last 24 hr 02/09/25 02/10/25 15:42 05:37 WBC 6.62 RBC 2.69 L Hgb 9.3 L Hct 25.6 L MCV 95.2 MCH 34.6 H MCHC 36.3 H RDW Std Deviation 47.6 H RDW Coeff of Shayna 15.1 H Plt Count 198 MPV 9.0 L Sodium 137 Potassium 4.2 Chloride 107 Carbon Dioxide 21 Anion Gap 9 BUN 13 Creatinine 0.52 L Est Cr Clr Drug Dosing 102.8 eGFR 103.04 BUN/Creatinine Ratio 25.0 H Glucose 146 H Calcium 8.9 SARS-CoV-2 (PCR) NEGATIVE Influenza Type A (PCR) Negative Influenza Type B (PCR) Negative RSV (RT-PCR) Negative Diagnostic Findings Telemetry personally reviewed: Sinus rhythm. History and physical report reviewed. Outpatient cardiology notes reviewed. Echo 02/10/2025: Normal LV size, wall motion, systolic function. EF 60-65%. Moderate LVH. Normal RV size and systolic function. Moderate biatrial dilation. Mild MR. RVSP 45. Similar findings compared to 02/23/2023 study. ECG personally reviewed 02/09/2025: Sinus rhythm with PACs [address] abnormality. Anterior T wave abnormality. prolonged QT. Labs reviewed and notable for negative high-sensitivity troponin, normal potassium, normal renal function, normal transaminase levels, new anemia. Chest x-ray 02/09/2025 report reviewed: Cardiomegaly. Pulmonary vascular congestion per radiology. Small pleural effusions with left basilar consolidation. Medications Administered Current Inpatient Medications Acetaminophen (Acetaminophen 325 Mg Tab) 650 mg PO Q6H PRN PRN Reason: Pain or Fever Stop: 03/11/25 20:00 Last Admin: 02/09/25 20:09 Dose: 650 mg Albuterol (Albut/Ipratrop 3mg/0.5mg Neb 3 Ml Vial) 3 ml INH Q4H PRN; Protocol PRN Reason: wheezing Stop: 03/11/25 14:51 Apixaban (Apixaban 5 Mg Tablet) 5 mg PO BID [facility] Stop: 03/11/25 20:59 Last Admin: 02/10/25 09:12 Dose: 5 mg Aspirin (Aspirin 81 Mg Ectab) [address] [facility] [place] Stop: 03/12/25 08:59 Last Admin: 02/10/25 09:12 Dose: 81 mg Atorvastatin Calcium (Atorvastatin 40 Mg Tab) 40 mg PO MoWeFr@0900 [facility] Stop: 03/12/25 08:59 Last Admin: 02/10/25 09:11 Dose: 40 mg Azithromycin (Azithromycin 250 Mg Tab) 500 mg PO QAM [facility] Stop: 02/15/25 08:59 Last Admin: 02/10/25 09:10 Dose: 500 mg Escitalopram Oxalate (Escitalopram Oxalate 10 Mg Tab) 10 mg PO HS [facility] Stop: 03/11/25 20:59 Last Admin: 02/09/25 20:09 Dose: 10 mg Fluticasone Furoate (Fluticasone Furoate 200mcg 14 Puffs/Inhaler) 1 puffs INH DAILY KAYCE Stop: 03/12/25 08:59 Last Admin: 02/10/25 09:08 Dose: 1 puffs Fluticasone Propionate (Fluticasone Propionate Na Spr 16 Gm Btl) 1 sprays NA DAILY PRN PRN Reason: Allergic Symptoms Stop: 03/12/25 08:59 Furosemide (Furosemide 40 Mg Tab) 40 mg PO QAM KAYCE Stop: 03/13/25 08:59 Hydroxyzine HCl (Hydroxyzine Hcl 25 Mg Tab) 50 mg PO HS PRN PRN Reason: itching Stop: 03/11/25 14:51 Ceftriaxone Sodium (Rocephin) 1,000 mg in 50 mls @ 100 mls/hr IV Q24H KAYCE Stop: 02/15/25 13:59 Last Infusion: 02/10/25 15:08 Dose: Infused Metoprolol Succinate (Metoprolol Succ 50mg Ext Rel Tab) 100 mg PO QPM KAYCE Stop: 03/11/25 19:59 Last Admin: 02/09/25 21:03 Dose: 100 mg Ondansetron HCl (Ondansetron Inj 2 Mg/Ml 2 Ml Vial) 4 mg IV Q6H PRN PRN Reason: Nausea Stop: 03/11/25 14:58 Prednisone (Prednisone 20 Mg Tab) 40 mg PO DAILY KAYCE Stop: 03/13/25 08:59 Umeclidinium/Vilanterol (Umeclidinium/Vilanterol 62.5/25mcg 7 Puffs/Inhaler) 1 puffs INH DAILY KAYCE Stop: 03/12/25 08:59 Last Admin: 02/10/25 09:07 Dose: 1 puffs PG Care Time/CCT Total # of Minutes Spent Total Time Spent with Patient: Total time spent is greater than 50% in coordination of care (as documented) at patient's floor/unit and/or counseling patient: Coding Level of Care Code 96353 INT INP/OBS CARE 3/75MIN Diagnoses Heart failure with preserved ejection fraction I50.30 Paroxysmal atrial fibrillation I48.0 Coronary artery disease involving [place] coronary artery of [place] heart without angina pectoris I25.10 Coronary Disease-Associated Artery/Lesion type: [place] artery [place] vs. transplanted heart: [place] heart Associated angina: without angina S/P coronary artery stent placement Z95.5 Shortness of breath R06.02 (3) Coronary artery disease Coronary Disease-Associated Artery/Lesion type: [place] artery [place] vs. transplanted heart: [place] heart Associated angina: without angina Qualified Code(s): I25.10 - Atherosclerotic heart disease of [place] coronary artery without angina pectoris
[2025-02-10] MEDS: MELATONIN 3 MG TAB PO PRN (20:22)
[2025-02-11 07:35] VITALS: BP 108/70; TEMP 97.9
[2025-02-11 07:58] LABS: Anion Gap 7.0 (3-11); Blood Urea Nitrogen 22.0 mg/dl (6-23); Calcium 8.7 mg/dl (8.6-10.3); Carbon Dioxide 25.0 mmol/L (21-32); Chloride 107.0 mmol/L (98-107); Creatinine Clr Calc Pharmacy 91.3 ml/min; Glucose 100.0 mg/dl (70-99(Fasting)); Potassium 3.5 mmol/L (3.5-5.1); Sodium 139.0 mmol/L (136-145)
[2025-02-11 08:28] LABS: Hematocrit (blood only) 28.3 % (37.0-47.0); Hemoglobin 10.0 g/dl (12.0-16.0); Mean Corpuscular Hemoglobin 32.8 pg (25.0-34.0); Mean Corpuscular Volume 92.8 fL (80.0-100.0); Platelet Count 224 K/uL (130-400); RDW Standard Deviation 48.8 fL (36.4-46.3); Red Blood Count 3.05 M/uL (4.20-5.40); White Blood Count 8.75 K/ul (4.8-10.8)
[2025-02-11] MEDS: FUROSEMIDE 40 MG TAB PO SCH (08:43)
[2025-02-11] MEDS: predniSONE 20 MG TAB PO SCH (08:43)
[2025-02-11 10:08] VITALS: PULSE 65; RESP 18; O2SAT 92
--- NOTE | 2025-02-11 16:35 | Discharge Summary ---
Discharge Summary Date of Service February 11, 2025 Principal Dx & Hospital Course #1 = Principal Diagnosis (1) COPD with exacerbation: -duonebs - Transition to prednisone 40 mg a day -supplimental 02 may require 2 step prior to discharge (2) Left lower lobe pneumonia: -rocephin/zithromax (3) CHF exacerbation: -lasix daily -echo pending -cardiology consulted (4) Atrial fibrillation: -eliquis (5) Coronary artery disease: -asa -atorvastatin -metoprolol Plan 64 y/o female with pmh of chronic respiratory failure with hypoxia, COPD using home 02 at night, CAD s/p stent, CHF, afib on eliquis, who presents with 1 day history of progressive SOB, cough, fever, and wheezing. In the ER her CXR showed exacerbation of heart failure preserved ejection fraction with possible left lower lobe opacity consistent with pneumonia. She was noted to have audible wheezing. Pt was given nebs along with solu-medrol IV and started on abx for treatment of PNA despite gram-negative. She is also receiving lasix #Acute on chronic respiratory failure with hypoxia. Multifactorial. Concern for COPD with wheezing, concern for pneumonia possible gram-negative, concern for exacerbation of heart failure preserved ejection fraction. # COPD oral prednisone tapering dose, will be on 3 additional days of azithromycin and continues on medications including fluticasone and albuterol umeclidinium and vilanterol, will require 2 step prior to discharge. For exacerbation of heart failure preserved ejection fraction patient cardiology feels patient can return to her daily Lasix dosing. For the possibility of pneumonia patient is on community-acquired pneumonia #Coronary artery disease atrial fibrillation patient remains on apixaban, aspirin, atorvastatin and metoprolol therapy #For depression he remains on escitalopram Notes For Next Care Provider pt now is requiring oxygen at 2L rest and 4L with exertion. re evaluate after steroid taper, ? pulmonary rehab Admission HPI Per Admitting Provider Pt is a 64 y/o female with pmh of COPD using home 02 at night, CAD s/p stent, CHF, afib on eliquis, who presents with 1 day history of progressive SOB, cough, fever, and wheezing. In the ER her CXR showed CHF, with possible left lower lobe opacity. She was noted to have audible wheezing. Pt was given nebs along with solu-medrol IV and started on abx for treatment of PNA. She is also receiving lasix IV and will have further evaluation of underlying CHF exacerbation. Discharge Exam Constitutional lungs are clear good air movement cardiac is regular Discharge Plan Discharge Items Patient Disposition: Home - Self-Care Reason For Visit: SOB Discharge Diagnosis: flare of copd with mild pneumonia flare of heart failure now treated Condition on Discharge: Good Activity: Resume your previous activity Non-emergency contact: Primary Care Provider Call non-emergency contact if: your symptoms worsen Follow-up/Referrals: Edy Hoffmann MD [Primary Care Provider] - 02/17/25 11:30 am Diet: Low Sodium (2gm) Addtl Attending Provider Instructions: please follow your weights daily to help keep track of your fluid, weight gain many times will be fluid retention and can be helped by increased water pills please finish your prednisone taper dose and antibiotics, be sure to see your pcp prior to completing so they can asses you and the need to stop or continue the taper Pending Studies at Discharge: No Stand-Alone Forms: My [facility] [employer], Smoking Cessation Medications and DC Order Prescriptions: New azithromycin 250 mg Tablet 500 mg PO QAM Qty: 3 0RF Continued (DME) Oxygen Home Liters Per Minute See Rx Instructions .ROUTE .MEDSUPPLY Qty: 1 0RF Rx Instructions: As directed---3.5 lpm at night acetaminophen [Tylenol Arthritis Pain] 650 mg tablet extended release 1,300 mg PO Q12H Qty: 120 2RF albuterol sulfate [Ventolin HFA] 90 mcg/actuation HFA aerosol inhaler 2 puff inhalation Q6H PRN (Reason: shortness of breath or wheezing) Qty: 6.7 2RF ipratropium-albuterol 0.5 mg-3 mg(2.5 mg base)/3 mL solution for nebulization 3 ml inhalation Q4H PRN (Reason: wheezing) Qty: 540 0RF Eliquis 5 mg tablet 5 mg PO BID Qty: 180 3RF furosemide 40 mg tablet 40 mg PO DAILY Qty: 90 0RF atorvastatin 40 mg tablet 40 mg PO .Three times a week Qty: 45 0RF escitalopram oxalate [Lexapro] 10 mg tablet 10 mg PO HS Qty: 90 3RF (DME) nebulizer accessories Kit See Rx Instructions .Route Qty: 1 0RF Rx Instructions: As directed Trelegy Ellipta 200-62.5-25 mcg blister with device 1 inh inhalation DAILY Qty: 60 5RF hydroxyzine HCl 25 mg tablet 50 mg PO HS PRN (Reason: itching) Qty: 180 1RF nitroglycerin 0.4 mg tablet, sublingual 0.4 mg SL Q5M PRN (Reason: chest pain) Qty: 20 0RF Rx Instructions: until response; do not exceed 3 doses per episode potassium chloride 10 mEq tablet extended release 10 meq PO DAILY Qty: 90 3RF metoprolol succinate 100 mg tablet extended release 24 hr 100 mg PO DAILY Qty: 90 3RF mometasone [Allergy Nasal (mometasone)] 50 mcg/actuation spray,non-aerosol 2 spray intranasal HS Qty: 17 2RF Rx Instructions: administer into each nostril aspirin [Adult Low Dose Aspirin] 81 mg tablet,delayed release (DR/EC) 81 mg PO QAM azelastine 137 mcg (0.1 %) spray,non-aerosol 2 spray intranasal BID Rx Instructions: 2 SPRAYS INTRANASAL TWICE A DAY ADMINISTER INTO EACH NOSTRIL Changed prednisone 10 mg tablet 10 mg PO DIRECTED Qty: 40 0RF Rx Instructions: 4 a day x 4 d>3 a day x 4 d>2 a day x 4 d>1 a day Discharge Orders: Discharge Order (Routine); Ordered 02/11/25 Ordered By: Germán Becker Admission Data Admit Date/Time: 02/09/25 14:59 Attending Provider: Germán Becker Admit Provider: Sotero Quijano Primary Care Provider: Edy Hoffmann Other Providers: Sotero Quijano; Julio Cesar Morel; Madeline Gonzalez Other Interventions: Discharge Summary Assessment (RN) Last Done: 02/11/25 10:07 Hospital Stay Data Consultations 02/09/25 14:08 ED Decision to Admit Stat 02/09/25 15:02 Consult Cardiology Routine 02/10/25 21:28 [facility] CHF Program Referral Routine Pending Results Patient Have Any Pending Studies at Discharge: No Discharge Instructions Given to Patient (Per Discharging Provider) please follow your weights daily to help keep track of your fluid, weight gain many times will be fluid retention and can be helped by increased water pills please finish your prednisone taper dose and antibiotics, be sure to see your pcp prior to completing so they can asses you and the need to stop or continue the taper Total Time Total Time Spent Total Time Spent (In Minutes): I personally have spent greater than 30 minutes of time on the patient discharge today including review of tests, documentation, exam, and discussing treatment plan moving forward with the patient. Coding Level of Care Code 91782 INP/OBS DISCH >30 MIN Diagnoses COPD with exacerbation J44.1 Pneumonia of left lower lobe due to infectious organism J18.9 Pneumonia type: due to unspecified organism CHF exacerbation I50.9 Paroxysmal atrial fibrillation I48.0 Atrial fibrillation type: paroxysmal Coronary artery disease involving [place] coronary artery of [place] heart without angina pectoris I25.10 Coronary Disease-Associated Artery/Lesion type: [place] artery [place] vs. transplanted heart: [place] heart Associated angina: without angina
== END 2025-02-11 10:54 | disposition home or self-care (01) | DRG 177 ==
LOC: ED 12:56 → SUATTDRO 14:59 → 2S 14:59